=== PATIENT | male | born 1985 ===

== ENCOUNTER 2021-05-09 13:25 | Outpatient (REF) | payer BC, SELFPAY ==
[2021-05-09 13:34] LABS: MANUAL DIFF FLAG NO
[2021-05-09 13:48] LABS: Basophils Absolute Auto 0.1 X10*3/uL (0.0-0.2); Basophils Percent Auto 0.8 % (0-2); Eosinophils Absolute Auto 0.3 X10*3/uL (0.0-0.4); Eosinophils Percent Auto 3.8 % (0-4); Hematocrit 46.7 % (42-52); Hemoglobin 15.8 g/dl (14.0-18.0); Imm Gran Abs Auto 0.02 X10*3/uL (0.00-0.03); Imm Gran Pct Auto 0.3 % (0.0-0.4); Lymphocytes Absolute Auto 2.4 X10*3/uL (1.2-4.9); Mean Corpuscular HGB Conc 33.8 g/dl (31.0-36.0); Mean Corpuscular Hemoglobin 29.4 pg (27.0-33.0); Mean Platelet Volume 9.5 fL (9.4-12.4); Monocytes Absolute Auto 0.8 X10*3/uL (0.1-1.2); Monocytes Percent Auto 10.1 % (2-11); Neutrophils Absolute Auto 4.2 X10*3/uL (2.0-8.3); Platelet Count 369 X10*3/uL (160-400); Red Blood Count 5.37 X10*6/uL (4.60-5.80); Red Cell Distribution Width 13.2 % (11.0-16.0); White Blood Count 7.7 X10*3/uL (4.8-10.8)
[2021-05-09 14:05] LABS: Alanine Aminotransferase 23 U/L (0-40); Albumin Level 4.4 g/dL (3.5-5.0); Alkaline Phosphatase 115 U/L (39-117); Anion Gap 11 (12-20); Aspartate Amino Transferase 15 U/L (5-37); Bilirubin Total 0.4 mg/dL (0.0-1.0); Blood Urea Nitrogen 12 mg/dL (9-16); Calcium 9.5 mg/dL (8.4-10.2); Carbon Dioxide 26 mmol/L (22-29); Chloride 104 mmol/L (96-108); Cholesterol 178 mg/dL; Estimated Glomerular Filt Rate > 60; Glucose Fasting 99 mg/dL (60-99); HDL Cholesterol 35 mg/dL; LDL Cholesterol Calculated 107 mg/dl; Potassium 4.2 mmol/L (3.3-5.1); Sodium 137 mmol/L (135-145); Total Protein 7.3 g/dL (6.5-8.0); Triglycerides 183 mg/dL
[2021-05-09 14:14] LABS: Glucose Urine UA NEG (NEG); Leukocyte Esterase Urine NEG (NEG); Nitrite Urine NEG (NEG); Specific Gravity - Urine 1.015 (1.005-1.025); Urine Blood NEG (NEG); Urine Ketones NEG (NEG); Urine Protein NEG (NEG-TRACE)
[2021-05-09 14:45] LABS: Appearance Urine CLEAR; Color Urine YELLOW
== END 2021-05-09 13:26 | disposition home or self-care (01) ==
LOC: HO.LNP 13:25
PROVIDERS: Visit Provider Internal Medicine
DX: R07.89 Other chest pain (principal); R00.0 Tachycardia, unspecified; G47.33 Obstructive sleep apnea (adult) (pediatric); R09.89 Other specified symptoms and signs involving the circulatory and respiratory systems; E78.00 Pure hypercholesterolemia, unspecified; N52.9 Male erectile dysfunction, unspecified
CPT/HCPCS: 80053; 80061; 81003; 84443; 85025

== ENCOUNTER 2021-05-19 10:09 | Outpatient (REF) | payer BC, SELFPAY ==
[2021-05-24 17:05] LABS: Testosterone, Free 91.8 pg/mL (35.0-155.0); Testosterone, Total 419 ng/dL (250-1100)
== END 2021-05-19 10:10 | disposition home or self-care (01) ==
LOC: HO.LNP 10:09
PROVIDERS: Visit Provider Internal Medicine
DX: N52.9 Male erectile dysfunction, unspecified (principal)
CPT/HCPCS: 84402; 84403

== ENCOUNTER → 2021-05-24 14:06 | Outpatient (BNVA) | payer BC, SELFPAY | PROVIDERS: PCP Internal Medicine; Referring Provider Internal Medicine; Visit Provider Internal Medicine | DX: R07.2 Precordial pain (principal); R00.2 Palpitations; R06.02 Shortness of breath | CPT/HCPCS: 93005 ==

== ENCOUNTER → 2021-06-07 09:16 | Outpatient (REF) | payer BC, SELFPAY ==
--- NOTE | 2021-06-07 09:24 | CA_ITS ---
Acquisition Time: 2021-06-07 09:19:54 Total Exercise Time: 00:10:44 Test Indications: CP, SOB Medications: SEE CHART Protocol: RENU Max HR: 190 BPM 103% of Pred: 183 BPM Max BP: 188/084 mmHG Max Work Load: 12.9 METS Exercise stress test with exercise 10 min 44 sec of Renu protocol, with report of his mid chest pressures just starting in stage 4, which then improved when he removed his mask and reported increased ease of breathing, with isolated PAC, with normotensive response to exercise, with downsloping ST lead III at baseline, with exercise there is some artifact making interpretation more difficult, at near peak exercise there seems to be borderline ST depression V4-V6, which corrects quickly in early recovery, then with downsloping to slight downsloping ST leads III, aVF, V4-V6 later in recovery. Will order stress echo for further evaluation. Test reviewed with Dr Ramsay. Referred By: Davin Baptiste Overread By: GABRIEL RAMOS
== END ==
LOC: HO.CARD 09:16
PROVIDERS: Visit Provider Internal Medicine
DX: R07.2 Precordial pain (principal); R94.39 Abnormal result of other cardiovascular function study
CPT/HCPCS: 93017

== ENCOUNTER → 2021-07-07 12:46 | Outpatient (BNVA) | payer BC, SELFPAY | PROVIDERS: PCP Internal Medicine; Referring Provider Internal Medicine; Visit Provider Internal Medicine ==

== ENCOUNTER → 2021-07-13 11:12 | Outpatient (REF) | payer BC, SELFPAY ==
--- NOTE | 2021-07-13 11:15 | CA_ITS ---
Acquisition Time: 2021-07-13 11:16:37 Total Exercise Time: 00:10:30 Test Indications: CP, SOB Medications: SEE CHART Protocol: RENU Max HR: 190 BPM 103% of Pred: 183 BPM Max BP: 158/080 mmHG Max Work Load: 12.5 METS Exercise stress test with exercise 10 min 30 sec of Renu protocol, with 2-3/10 mid chest pressure, midl sob, with isolated PACs, with normotensive response to exercise, with EKG showing downsloping ST/ T wave inversion lead III at baseline, EKG at peak exercise has artifact making assessment for ischemia difficult, then without EKG changes of ischemia at 47 sec of recovery, at 4-5 min recovery there were ST/ T wave abnormalities seen in in leads III, aVF, V4-V6. His chest discomfort quickly improves in recovery. Echo images obtained by tech at rest and immediate post peak exercise. Definity contast used. Test reviewed with Dr Baptiste. Referred By: Ellie Medrano Overread By: ELLIE MEDRANO
== END ==
LOC: HO.CARD 11:12
PROVIDERS: PCP Internal Medicine; Visit Provider Nurse Practitioner Family
DX: R07.2 Precordial pain (principal); R94.39 Abnormal result of other cardiovascular function study
CPT/HCPCS: 93350; Q9957

== ENCOUNTER → 2021-08-05 09:43 | Outpatient (REF) | payer BC, SELFPAY ==
--- NOTE | 2021-08-05 09:48 | HM_ITS ---
Total monitoring time 6 days and 16 hours. Underlying rhythm is sinus. Minimum heart rate 47/Min. Maximum 163/Min. Average 83/Min. No atrial fibrillation or flutter. About 22% of the time, rate greater than 100/Min. Very rare supraventricular and ventricular ectopy with a burden of less than 0.01%. No patient events. MTDD
--- NOTE | 2021-08-05 09:48 | CA_ITS ---
Transthoracic Echocardiogram Patient (Last, First, Middle): Cheng Diaz, Gender: Male Date of : 1985 Age: 36 Procedure Date: 08/05/2021 Procedure Type: Transthoracic Echocardiogram Location: OP Height: 182.88 cm Weight: 94.35 kg BSA: 2.17 m2 Heart Rate: bpm BP: 118 / 60 mmHg Health Associate: VH/CP Referring MD: Davin Baptiste MD Symptoms: R07.2 - Precordial pain Study Quality: Good ECG Rhythm: Sinus Conclusions: - The left ventricular systolic function is normal. The visually estimated ejection fraction is between 65-70%. - No obvious valvular pathology seen on this study. Findings Left Ventricle Normal left ventricular cavity size. There is mildly increased left ventricular wall thickness. The left ventricular systolic function is normal. The visually estimated ejection fraction is between 65-70%. There is no evidence of regional wall motion abnormalities. Diastolic function is normal for age. Right Ventricle Normal right ventricular cavity size and systolic function. Atria Both atria are normal in size. Aortic Valve There is a normal trileaflet aortic valve. There is no aortic valve stenosis. There is no aortic valve regurgitation. Mitral Valve The mitral valve appears normal. There is no mitral valve regurgitation. There is no mitral valve stenosis. Pulmonic Valve The pulmonic valve was not well visualized. Tricuspid Valve Normal tricuspid valve structure. There is trace tricuspid valve regurgitation. The pulmonary artery systolic pressure is normal. Great Vessels The aortic annulus, sinuses of valsalva, asc aorta, and aortic arch are normal in size. Venous The inferior vena cava is normal in size and collapses greater than 50% with inspiration. Pericardium/Pleural There is no evidence of pericardial effusion. Prior Study Comparison No prior study available for comparison. Recommendations, Care & Conclusions No obvious valvular pathology seen on this study. Measurements 2D Linear Measurements IVSd: 1.15 0.6-0.9/0.6-1.0 cm LVIDd: 4.31 3.9-5.3/4.2-5.9 cm LVIDd Index: 1.99 2.4-3.2/2.2-3.1 cm/m2 LVIDs: 2.86 2.0-3.6 cm LVPWd: 1.09 0.7-1.1 cm Ao Root: 3.10 2.1-3.5 cm LA Diam: 3.40 2.7-3.8/3.0-4.0 cm LAIDs Index: 1.57 1.5-2.3 cm/m2 LV Mass: 208.99 67-162/88-224 g LV Mass Index: 96.31 43-95/49-115 g/m2 LVOT Diam: 2.30 3.0+(-)1.3 cm Mitral Valve MV Pk E: 0.75 MV PK A: 0.42 MV Decel Time: 182.00 E/A: 1.80 E'Lateral: 12.10 E'Medial: 10.10 E/E' Med: 7.40 E/E' Lat: 6.20 PHT: 53.00 MVA PHT: 4.15 Decel [place]: 4.10 Aortic Valve AoV Pk Vasiliy: 1.05 AoV Mn Vasiliy: 0.77 AoV VTI: 0.23 AoV Pk Grad: 4.00 Aov Mn Grad: 3.00 OLLIE Cont.VTI: 3.36 LVOT LVOT Pk Vasiliy: 0.93 LVOT Mn Vasiliy: 0.63 LVOT VTI: 0.19 LVOT Pk Grad: 3.00 LVOT Mn Grad: 2.00 LVOT Diam: 2.30 LVOT Area: 4.15 Diastolic Function MV Pk E: 0.75 MV Pk A: 0.42 E/A: 1.80 E'Medial: 10.10 E/E' Med: 7.40 E' Laterial: 12.10 E/E' Lat: 6.20 Right Ventricle TAPSE (mm): 20.00 TVS' Vasiliy: 16.00 Great Vessels Aorta Ao Root-2D: 3.10 2.0-3.7 cm Ao Asc: 2.70 2.1-3.4 cm Ao Arch: 2.90 Pulmonary Valve PV Pk Vasiliy: 1.11 Peak PV Grad: 5.00 Updated in Other Vendor System with Status of Final Davin Baptiste MD electronically signed on 08/06/2021 11:17:08 AM with status of Final
== END ==
LOC: HO.CARD 09:43
PROVIDERS: PCP Internal Medicine; Visit Provider Internal Medicine
DX: R07.2 Precordial pain (principal); R00.2 Palpitations
CPT/HCPCS: 93242; 93306